=== PATIENT | female | born 1975 | race African-American/Black ===

== ENCOUNTER → 2021-07-12 | Day surgery (SDC) | payer OTHER ==
[~2021-07-12] MED LIST: BUPIVACAINE HCL/PF 0.25% (2.5MG/ML) 10 ML VIAL IJ ONE; BUPIVACAINE HCL/PF 2.5 MG/ML - 30 ML VIAL IJ ONE; DEXAMETHASONE SOD PHOSPHATE 4 MG/1 ML VIAL ONE; LACTATED RINGERS SOLUTION 1,000 ML IV SCH; MIDAZOLAM HCL 2 MG/2 ML SINGLE DOSE VIAL ONE; PHENYLEPHRINE HCL 10 MG/1 ML SINGLE DOSE VIAL ONE; PROPOFOL 20 ML ONE; oxyCODONE HCL 5 MG TABLET PO PRN
[2021-07-12 09:06] VITALS: BMI 24.3
[2021-07-12 13:29] VITALS: PULSE 84; TEMP 97.8
[2021-07-12 13:48] VITALS: BP 102/50
== END | disposition home or self-care (01) ==
LOC: FASU 08:37
PROVIDERS: ATTEND Orthopaedic Surgery
PROC: 0SBD4ZZ Excision of Left Knee Joint, Percutaneous Endoscopic Approach (ICD-10-PCS; 2021-07-12)
PROC: 0SBD4ZZ Excision of Left Knee Joint, Percutaneous Endoscopic Approach (ICD-10-PCS; principal; 2021-07-12 11:42)
DX: S83.242A Other tear of medial meniscus, current injury, left knee, initial encounter (principal); S83.282A Other tear of lateral meniscus, current injury, left knee, initial encounter; S83.8X2A Sprain of other specified parts of left knee, initial encounter; M65.862 Other synovitis and tenosynovitis, left lower leg; X58.XXXA Exposure to other specified factors, initial encounter; Y93.9 Activity, unspecified; Y92.9 Unspecified place or not applicable
CPT/HCPCS: 81025; 88304-TC; 94760